=== PATIENT | female | born 1990 | race Caucasian/White ===

== ENCOUNTER → 2017-02-10 | Outpatient (CLI) | payer OTHER ==
[~2017-02-10] MED LIST: BCPILLS PO; CITA20TA9 PO; FRCT/ PO; OPTIRAY 320 IV PRN; PROP40TA5 PO; SUMA1INJ5 INJ
--- NOTE | 2017-02-10 09:40 | DIAGNOSTIC IMAGING REPORT ---
CT ABD/PELVIS IV AND ORAL CONT CLINICAL HISTORY: Persistent mid abdominal pain. Diarrhea, nausea. COMPARISON STUDY: None. TECHNIQUE: Following the IV administration of 92 mL of Optiray-320, CT scan of the abdomen and pelvis was performed from the lung bases to the proximal femurs. Images are reviewed in the axial, sagittal, and coronal planes. IV contrast was administered without complication. CT DOSE: 667.66 mGy.cm FINDINGS: Lower chest: There are mild basilar atelectatic changes. An 8 mm groundglass opacity within the right lower lobe posteriorly, is likely atelectatic. There is an 11 mm left-sided chest wall nodule, likely representing an inferior axillary lymph node. Liver: There is mild hepatic steatosis. No focal masses are visualized. The portal vein appears patent. Gallbladder: Unremarkable. Spleen: Normal in size and attenuation. Pancreas: Unremarkable. Adrenal glands: Unremarkable. Kidneys: There is symmetric renal cortical enhancement. The kidneys are normal in size without hydronephrosis. Bowel: There are no transition zones indicate bowel obstruction. By history the appendix is absent. There is no acute diverticulitis. Peritoneum: There is no intraperitoneal free air or abdominal ascites. Vasculature: The abdominal aorta is normal in course and caliber. Adenopathy: None. Pelvic viscera: There is a 2 cm right ovarian cyst likely functional. Skeletal structures: There is bilateral L5 spondylolysis. There are areas of presumed fat necrosis within the left lower anterior abdominal wall. IMPRESSION: 1. No evidence of bowel obstruction. No evidence of free air 2. No pancreatic abnormalities identified 3. No acute inflammatory changes. Surgically absent appendix. No evidence of acute diverticulitis. Electronically signed by: Jose A Kellogg M.D. 02/10/2017 9:39 AM Dictated Date/Time: 02/10/2017 9:30 AM
== END | disposition home or self-care (01) ==
LOC: C.CTS 09:13
PROVIDERS: ATTEND Internal Medicine Gastroenterology
DX: R19.7 Diarrhea, unspecified (principal); R11.0 Nausea